=== PATIENT | male | born 1980 | race Caucasian/White ===

== ENCOUNTER 2017-03-21 13:06 | Emergency (ER) | payer MEDICAID ==
[~2017-03-21] VITALS: Ht 175.3 cm; Wt 101.5 kg
[2017-03-21] MEDS ORDERED: PROPARACAINE HCL 0.5% 15 ML OPHTHALMIC SOLUTION OU ONE (14:45)
[2017-03-21] MEDS ORDERED: FLUORESCEIN SODIUM 1 MG STRIP OU ONE (14:45)
[2017-03-21 16:18] VITALS: BP 132/80
== END 2017-03-21 16:57 | disposition home or self-care (01) ==
LOC: EMS 13:10
DX: T15.02XA Foreign body in cornea, left eye, initial encounter (principal); S05.01XA Injury of conjunctiva and corneal abrasion without foreign body, right eye, initial encounter; X58.XXXA Exposure to other specified factors, initial encounter; Y93.89 Activity, other specified; Y92.89 Other specified places as the place of occurrence of the external cause; Y99.8 Other external cause status
CPT/HCPCS: 65222; 99173; 99284

== ENCOUNTER 2017-05-11 18:05 | Emergency (ER) | payer MEDICAID ==
[~2017-05-11] VITALS: Ht 175.3 cm; Wt 101.5 kg
[2017-05-11] MEDS ORDERED: DONNATAL/LIDOCAINE/MAALOX 55 ML BOTTLE PO ONE (19:30)
[2017-05-11 20:05] LABS: BASOPHILS % (AUTO) 0.8 % (0.0-2.0); EOSINOPHILS % (AUTO) 8.3 % (1.0-6.0); HEMATOCRIT 38.1 % (41-53); HEMOGLOBIN 13.1 g/dL (13.5-17.5); LYMPHOCYTES # (AUTO) 3.2 K/uL (1.0-4.8); LYMPHOCYTES % (AUTO) 41.1 % (22.0-44.0); MEAN CORPUSCULAR HEMOGLOBIN 30.1 pg (26.0-34.0); MEAN CORPUSCULAR HGB CONC 34.4 G/dL (31.0-37.0); MEAN CORPUSCULAR VOLUME 88 fL (80-100); MONOCYTES # (AUTO) 0.6 K/uL (0.1-1.0); MONOCYTES % (AUTO) 7.5 % (2.0-9.0); NEUTROPHILS # (AUTO) 3.3 K/uL (1.8-7.7); NEUTROPHILS % (AUTO) 42.3 % (40.0-70.0); PLATELET COUNT (AUTO) 250 K/uL (150-450); RED BLOOD CELL COUNT(AUTO) 4.34 MIL/uL (4.50-5.90); RED CELL DISTRIBUTION WIDTH 13.5 % (11.5-14.5); WHITE BLOOD COUNT (AUTO) 7.9 K/uL (4.5-11.0)
[2017-05-11] MEDS ORDERED: ACETAMINOPHEN 500 MG TABLET PO ONE (20:15)
[2017-05-11 20:17] LABS: ANION GAP 8 mmol/L (8-16); CALCIUM, TOTAL 8.5 mg/dL (8.8-10.5); CARBON DIOXIDE 28 mmol/L (22-29); CHLORIDE 105 mmol/L (98-107); CREATININE 0.82 mg/dL (0.60-1.30); GLOMERULAR FILTR. RATE CALC > 60 mL/min (>60); POTASSIUM 3.7 mmol/L (3.5-5.1); SODIUM SERUM 141 mmol/L (136-145); UREA NITROGEN, BLOOD 17 mg/dL (7-18)
[2017-05-11 20:23] LABS: ALANINE AMINOTRANSFERASE 18 U/L (12-78); ALBUMIN 3.2 g/dL (3.4-5.0); ASPARTATE AMINOTRANSFERASE 19 U/L (15-37); BILIRUBIN,TOTAL 0.2 mg/dL (0.1-1.0); TOTAL PROTEIN, SERUM 6.8 g/dL (6.4-8.2)
[2017-05-11 21:26] VITALS: BP 138/72
== END 2017-05-11 21:31 | disposition home or self-care (01) ==
LOC: EMS 18:16
DX: S60.012A Contusion of left thumb without damage to nail, initial encounter (principal); R10.13 Epigastric pain; R03.0 Elevated blood-pressure reading, without diagnosis of hypertension; W22.8XXA Striking against or struck by other objects, initial encounter; Y93.89 Activity, other specified; Y92.89 Other specified places as the place of occurrence of the external cause; Y99.8 Other external cause status
CPT/HCPCS: 29130; 36415; 73130; 80053; 83690; 85025; 99285; Z7610

== ENCOUNTER 2017-11-25 16:11 | Emergency (ER) | payer MEDICAID ==
[~2017-11-25] VITALS: Ht 175.3 cm; Wt 102.3 kg
[2017-11-25 16:49] LABS: APPEARANCE,URINE CLEAR (CLEAR); BILIRUBIN,URINE NEGATIVE (NEGATIVE); GLUCOSE, URINE (UA) NEGATIVE (NEGATIVE); KETONES,URINE NEGATIVE (NEGATIVE); LEUKOCYTE ESTERASE ,URINE NEGATIVE (NEGATIVE); NITRATE,URINE NEGATIVE (NEGATIVE); OCCULT BLOOD,URINE NEGATIVE (NEGATIVE); PH,URINE 7.5 (5.0-8.0); PROTEIN,URINE NEGATIVE (NEGATIVE)
[2017-11-25] MEDS ORDERED: AZITHROMYCIN 250 MG TABLET PO ONE (17:15)
[2017-11-25] MEDS ORDERED: CefTRIAXone SODIUM 1 GM/VIAL IM ONE (17:15)
[2017-11-25] MEDS ORDERED: LIDOCAINE HCL/PF 1% 2 ML VIAL IM ONE (17:15)
[2017-11-25] MEDS ORDERED: TAMSULOSIN HCL 0.4 MG CAPSULE PO ONE (17:15)
[2017-11-25 18:07] VITALS: BP 119/77
== END 2017-11-25 18:08 | disposition home or self-care (01) ==
LOC: EMS 16:13
DX: R30.0 Dysuria (principal); R39.198 Other difficulties with micturition
CPT/HCPCS: 81003; 87491; 87591; 96372; 99284; J0696; J3490

== ENCOUNTER 2018-05-27 10:21 | Emergency (ER) | payer MEDICAID ==
[~2018-05-27] VITALS: Ht 177.8 cm; Wt 100.0 kg
[2018-05-27 12:15] VITALS: BP 139/91
[2018-05-27] MEDS ORDERED: DiphenhydrAMINE HCL 25 MG CAPSULE PO ONE (12:15)
== END 2018-05-27 13:38 | disposition home or self-care (01) ==
LOC: EMS 10:22
DX: L24.5 Irritant contact dermatitis due to other chemical products (principal); R03.0 Elevated blood-pressure reading, without diagnosis of hypertension; F17.210 Nicotine dependence, cigarettes, uncomplicated; Y92.89 Other specified places as the place of occurrence of the external cause

== ENCOUNTER 2018-07-10 21:51 | Emergency (ER) | payer SELFPAY ==
[~2018-07-10] VITALS: Ht 175.3 cm; Wt 102.3 kg
[2018-07-10 22:52] LABS: BASOPHILS % (AUTO) 0.9 % (0.0-2.0); EOSINOPHILS % (AUTO) 7.7 % (1.0-6.0); HEMATOCRIT 41.6 % (41-53); HEMOGLOBIN 14.2 g/dL (13.5-17.5); LYMPHOCYTES # (AUTO) 4.1 K/uL (1.0-4.8); LYMPHOCYTES % (AUTO) 37.4 % (22.0-44.0); MEAN CORPUSCULAR HGB CONC 34.1 G/dL (31.0-37.0); MEAN CORPUSCULAR VOLUME 85 fL (80-100); MONOCYTES # (AUTO) 0.8 K/uL (0.1-1.0); MONOCYTES % (AUTO) 7.6 % (2.0-9.0); NEUTROPHILS # (AUTO) 5.1 K/uL (1.8-7.7); NEUTROPHILS % (AUTO) 46.4 % (40.0-70.0); PLATELET COUNT (AUTO) 276 K/uL (150-450); RED BLOOD CELL COUNT(AUTO) 4.89 MIL/uL (4.50-5.90); RED CELL DISTRIBUTION WIDTH 13.2 % (11.5-14.5)
[2018-07-10 23:09] LABS: ANION GAP 7 mmol/L (8-16); CALCIUM, TOTAL 9.1 mg/dL (8.8-10.5); CARBON DIOXIDE 28 mmol/L (22-29); CHLORIDE 105 mmol/L (98-107); GLOMERULAR FILTR. RATE CALC > 60 mL/min (>60); GLUCOSE,RANDOM 131 mg/dL (70-110); POTASSIUM 3.6 mmol/L (3.5-5.1); SODIUM SERUM 140 mmol/L (136-145); UREA NITROGEN, BLOOD 23 mg/dL (7-18)
[2018-07-10 23:14] LABS: ALANINE AMINOTRANSFERASE 32 U/L (12-78); ALBUMIN 3.4 g/dL (3.4-5.0); ALKALINE PHOSPHATASE 150 U/L (46-116); ASPARTATE AMINOTRANSFERASE 21 U/L (15-37); BILIRUBIN,TOTAL 0.3 mg/dL (0.1-1.0); TOTAL PROTEIN, SERUM 7.2 g/dL (6.4-8.2)
[2018-07-10 23:32] LABS: APPEARANCE,URINE CLEAR (CLEAR); BILIRUBIN,URINE NEGATIVE (NEGATIVE); GLUCOSE, URINE (UA) NEGATIVE (NEGATIVE); KETONES,URINE NEGATIVE (NEGATIVE); LEUKOCYTE ESTERASE ,URINE NEGATIVE (NEGATIVE); NITRATE,URINE NEGATIVE (NEGATIVE); OCCULT BLOOD,URINE TRACE (NEGATIVE); PROTEIN,URINE NEGATIVE (NEGATIVE); UROBILINOGEN,URINE 0.2 mg/dL (<=1.0)
[2018-07-10 23:48] LABS: BACTERIA,URINE None Seen /HPF (None Seen); RBC,URINE 0-2 /HPF (0-2); SQUAMOUS EPITHELIAL CELL,UR Rare /LPF (None Seen)
[2018-07-10 23:49] VITALS: BP 125/70
== END 2018-07-11 00:30 | disposition home or self-care (01) ==
LOC: EMS 21:52
DX: R60.0 Localized edema (principal)

== ENCOUNTER 2020-05-30 08:37 | Emergency (ER) | payer MEDICAID ==
[~2020-05-30] VITALS: Ht 177.8 cm; Wt 106.8 kg
[2020-05-30 10:16] LABS: GLUCOSE,POINT OF CARE 130 MG/DL (70-110)
[2020-05-30 10:18] VITALS: BP 125/74
== END 2020-05-30 11:02 | disposition home or self-care (01) ==
LOC: EMS 08:37
DX: T78.40XA Allergy, unspecified, initial encounter (principal); B35.3 Tinea pedis; B35.1 Tinea unguium; F17.210 Nicotine dependence, cigarettes, uncomplicated; Z88.8 Allergy status to other drugs, medicaments and biological substances; X58.XXXA Exposure to other specified factors, initial encounter

== ENCOUNTER 2020-07-29 12:35 | Emergency (ER) | payer MEDICAID ==
[~2020-07-29] VITALS: Ht 177.8 cm; Wt 118.2 kg
[2020-07-29 14:58] VITALS: BP 135/86
== END 2020-07-29 15:36 | disposition home or self-care (01) ==
LOC: EMS 15:15
DX: B35.3 Tinea pedis (principal); L03.116 Cellulitis of left lower limb; B35.1 Tinea unguium; F17.210 Nicotine dependence, cigarettes, uncomplicated; Z88.8 Allergy status to other drugs, medicaments and biological substances
CPT/HCPCS: 99406